=== PATIENT | female | born 1985 | race Caucasian/White ===

== ENCOUNTER 2017-08-08 21:34 | Emergency (ER) | payer BC, MEDICAID ==
[2017-08-08] MEDS ORDERED: ONDANSETRON HCL INJ/PF 4 MG/2 ML SDV IV ONE (22:14)
[2017-08-08] MEDS ORDERED: MORPHINE SULFATE 10 MG/ML INJ IV ONE (22:51)
[2017-08-08] MEDS ORDERED: NORMAL SALINE 1000 ML 1,000 ML IV PRN (22:52)
--- NOTE | 2017-08-08 22:56 | ER Document Report ---
ED Medical Screen (RME) - General Chief Complaint: Nausea/Vomiting/Diarrhea Stated Complaint: ABDOMINAL PAIN,NAUSEA,DIARRHEA TRAVEL OUTSIDE OF THE [place] IN LAST 30 DAYS: No - HPI Notes: 08/08/17 22:53 32-year-old female presents today with sudden onset umbilical pain that started approximately 8 hours ago. Reports bilateral leg cramping that started approximately 30 minutes ago. Reports pain is 10 out of 10, sharp and throbbing. Denies any chest pain, shortness of breath. Denies any chance of , states she is not having any sexual intercourse. Patient reports she still has her appendix and gallbladder. States pain is constant, denies radiation of pain. Reports nausea and vomiting, denies chest pain or shortness of breath. I have greeted and performed a rapid initial assessment of this patient. A comprehensive ED assessment and evaluation of the patient, analysis of test results and completion of medical decision making process will be conducted by an additional ED providers. - Related Data Allergies/Adverse Reactions: No Known Allergies Allergy (Verified 08/08/17 22:12) Review of Systems - Review of Systems Gastrointestinal: See HPI Musculoskeletal: See HPI -: Yes All other systems reviewed and negative Physical Exam - Vital signs Vitals: Temp Pulse Resp BP Pulse Ox 98.1 F 97 20 123/64 96 08/08/17 21:36 08/08/17 21:36 08/08/17 21:36 08/08/17 21:36 08/08/17 21:36 - General General appearance: Anxious In distress: Mild - crying - Abdominal Tenderness: Tender - Right lower quadrant with rebound, umbilical pain. Course - Vital Signs Vital signs: Temp Pulse Resp BP Pulse Ox 98.1 F 97 20 123/64 96 08/08/17 21:36 08/08/17 21:36 08/08/17 21:36 08/08/17 21:36 08/08/17 21:36
[2017-08-08 23:27] LABS: HEMOGLOBIN 14.4 g/dL (12.0-15.5); MEAN CORPUSCULAR HEMOGLOBIN 30.5 pg (27.0-33.4); MEAN CORPUSCULAR HGB CONC 34.3 g/dL (32.0-36.0); MEAN CORPUSCULAR VOLUME 89 fl (80-97); PLATELET COUNT 283 10^3/uL (150-450); RED BLOOD COUNT 4.72 10^6/uL (3.72-5.28); RED CELL DISTRIBUTION WIDTH 13.6 % (11.5-14.0); WHITE BLOOD COUNT 15.7 10^3/uL (4.0-10.5)
[2017-08-08] MEDS ORDERED: DICYCLOMINE HCL INJ 20 MG/2 ML AMPULE IM ONE (23:35)
[2017-08-08 23:45] LABS: ALANINE AMINOTRANSFERASE 38 U/L (9-52); ALBUMIN 4.2 g/dL (3.5-5.0); ALKALINE PHOSPHATASE 75 U/L (38-126); ANION GAP 11 (5-19); ASPARTATE AMINO TRANSFERASE 30 U/L (14-36); BILIRUBIN,DIRECT 0.1 mg/dL (0.0-0.4); BILIRUBIN,TOTAL 0.8 mg/dL (0.2-1.3); BLOOD UREA NITROGEN 22 mg/dL (7-20); CALCIUM 9.3 mg/dL (8.4-10.2); CARBON DIOXIDE 20 mmol/L (22-30); CHLORIDE 106 mmol/L (98-107); GLUCOSE 100 mg/dL (75-110); MAGNESIUM 1.5 mg/dL (1.6-2.3); TOTAL PROTEIN 6.5 g/dL (6.3-8.2)
[2017-08-08 23:54] LABS: ABSOLUTE LYMPHOCYTES# (MANUAL) 0.6 10^3/uL (0.5-4.7); ABSOLUTE MONOCYTES # (MANUAL) 0.2 10^3/uL (0.1-1.4); ABSOLUTE NEUTROPHILS# (MANUAL) 14.9 10^3/uL (1.7-8.2); BAND NEUTROPHILS % (MANUAL) 1 % (3-5); BASOPHILS % (MANUAL) 0 % (0-2); EOSINOPHILS % (MANUAL) 0 % (0-6); LYMPHOCYTES % (MANUAL) 4 % (13-45); MONOCYTES % (MANUAL) 1 % (3-13); SEGMENTED NEUTROPHILS % (MAN) 94 % (42-78); TOTAL CELLS COUNTED 100
[2017-08-08 23:55] LABS: POIKILOCYTOSIS SLIGHT; TOXIC GRANULATION SLIGHT
[2017-08-08 23:56] LABS: OVALOCYTES SLIGHT; PLATELET COMMENT ADEQUATE; TEAR DROP CELLS SLIGHT
[2017-08-09 00:28] LABS: APPEARANCE,URINE CLEAR; BILIRUBIN,URINE NEGATIVE (NEGATIVE); COLOR,URINE YELLOW; GLUCOSE, URINE NEGATIVE (NEGATIVE); KETONES,URINE NEGATIVE (NEGATIVE); LEUKOCYTE ESTERASE,URINE NEGATIVE (NEGATIVE); NITRITE,URINE NEGATIVE (NEGATIVE); PROTEIN,URINE NEGATIVE (NEGATIVE); URINE SPECIFIC GRAVITY 1.028; UROBILINOGEN,URINE NEGATIVE mg/dL (<2.0)
[2017-08-09] MEDS ORDERED: MAGNESIUM SULFATE/D5W 1 GM/100 ML RTUPB IV ONE (00:41)
[2017-08-09] MEDS ORDERED: NORMAL SALINE 1000 ML 1,000 ML IV ONE (01:19)
--- NOTE | 2017-08-09 01:21 | ER Document Report ---
ED General - General Chief Complaint: Nausea/Vomiting/Diarrhea Stated Complaint: ABDOMINAL PAIN,NAUSEA,DIARRHEA Time Seen by Provider: 08/08/17 23:27 Notes: Patient is a 32-year-old female presents with complaint of vomiting diarrhea abdominal cramping. She also developed cramping into her legs and feet. Patient says that her child had vomiting diarrhea on this last week. Patient herself also had the flu. She was diagnosed with flu but she was still placed on amoxicillin. She just finished amoxicillin a few days ago. She says that the cramping is mainly just behind her umbilicus. She denies any focal pain to her right lower quadrant of abdomen. No pain to her right upper quadrant. No blood in her stool. No fevers. No other complaints at this time. No history of abdominal surgeries. TRAVEL OUTSIDE OF THE [place] IN LAST 30 DAYS: No - Related Data Allergies/Adverse Reactions: No Known Allergies Allergy (Verified 08/08/17 22:12) Past Medical History - Social History Smoking Status: Never Smoker Frequency of alcohol use: Occasional Drug Abuse: None Family History: Reviewed & Not Pertinent Patient has suicidal ideation: No Patient has homicidal ideation: No Renal/ Medical History: Denies: Hx Peritoneal Dialysis Psychiatric Medical History: Reports: Hx Attention Deficit Hyperactivity Disorder Review of Systems - Review of Systems Notes: My Normal Review Basic REVIEW OF SYSTEMS: CONSTITUTIONAL : Denies fever, chills, or sweats. Denies recent illness. EENT: Denies eye, ear, throat, or mouth pain or symptoms. Denies nasal or sinus congestion. RESPIRATORY: Denies cough, cold, or chest congestion. Denies shortness of breath, difficulty breathing, or wheezing. GASTROINTESTINAL: Crampy abdominal pain. Some vomiting. Some diarrhea. GENITOURINARY: Denies difficulty urinating, painful urination, burning, frequency, or blood in urine. FEMALE GENITOURINARY: Denies vaginal bleeding, abnormal or irregular periods. MUSCULOSKELETAL: Denies neck or back pain or joint pain or swelling. SKIN: Denies rash or skin lesions. NEUROLOGICAL: Denies altered mental status or loss of consciousness. Denies headache. Denies weakness or paralysis or loss of use of either side. Denies problems with gait or speech. Denies sensory or motor loss. ALL OTHER SYSTEMS REVIEWED AND NEGATIVE. Physical Exam - Vital signs Vitals: Temp Pulse Resp BP Pulse Ox 98.1 F 97 20 123/64 96 08/08/17 21:36 08/08/17 21:36 08/08/17 21:36 08/08/17 21:36 08/08/17 21:36 - Notes Notes: General Appearance: Well nourished, alert, cooperative, no acute distress, mild obvious discomfort. Vitals: reviewed, See vital signs table. Head: no swelling or tenderness to the head Eyes: PERRL, EOMI, Conjuctiva clear Mouth: No decreasd moisture Throat: No tonsillar inflammation, No airway obstruction, No lymphadenopathy Lungs: No wheezing, No rales, No rhonci, No accessory muscle use, good air exchange bilaterally. Heart: Normal rate, Regular rythm, No murmur, no rub Abdomen: Normal BS, soft, No rigidity, No reproducible abdominal tenderness to palpation, No guarding, no rebound, no abdominal masses, Extremities: strength 5/5 in all extremities, good pulses in all extremities, no swelling or tenderness in the extremities, no edema. Skin: warm, dry, appropriate color, no rash Neuro: speech clear, oriented x 3, normal affect, responds appropriately to questions. Course - Re-evaluation Re-evalutation: 08/09/17 01:25 Patient's pain is subsided after receiving the Bentyl. Her nausea is gone. She looks well. She just gave us a stool sample. We will run stool sample to make sure there is no evidence of C. difficile. 08/09/17 02:36 Patient is feeling improved and her C. difficile test is negative. I did reevaluate her belly before disposition. Fortunately she is now having pain to palpation of her right upper quadrant. Is only tender when I push over the area but she is now very tender over right upper quadrant. She did not have pain here earlier. I will obtain ultrasound just to make sure that the gallbladder looks okay. - Vital Signs Vital signs: Temp Pulse Resp BP Pulse Ox 98.1 F 97 20 123/64 96 08/08/17 21:36 08/08/17 21:36 08/08/17 21:36 08/08/17 21:36 08/08/17 21:36 - Laboratory Result Diagrams: 08/08/17 23:02 08/08/17 23:02 Laboratory results interpreted by me: 0108/08/17 08/09/17 23:02 23:02 00:08 WBC 15.7 H Seg Neuts % (Manual) 94 H Band Neutrophils % 1 L Lymphocytes % (Manual) 4 L Monocytes % (Manual) 1 L Abs Neuts (Manual) 14.9 H Carbon Dioxide 20 L BUN 22 H Magnesium 1.5 L Urine Blood SMALL H Discharge - Discharge Clinical Impression: Vomiting and diarrhea Abdominal pain Qualifiers: Abdominal location: generalized Qualified Code(s): R10.84 - Generalized abdominal pain Condition: Good Disposition: HOME, SELF-CARE Additional Instructions: Please take the medicine as prescribed. Please follow up with a doctor in 2 days for reevaluation. Please return to the ER immediately if you have intractable vomiting, fevers, bloody stools, or feel unwell. Prescriptions: Dicyclomine HCl [Bentyl 20 mg Tablet] 20 mg PO QID #20 tablet Ondansetron [Zofran Odt 4 mg Tablet] 1 tab PO Q4H PRN #15 tab.rapdis PRN Reason: For Nausea/Vomiting Referrals: DELILAH BUTLER MD [Primary Care Provider] - Follow up as needed
--- NOTE | 2017-08-09 03:34 | RADIOLOGY REPORT (SQ) ---
EXAM DESCRIPTION: U/S ABDOMEN LTD W/DOPPLER CLINICAL HISTORY: 32 years, Female, RUQ abdominal pain COMPARISON: CT, 08/08/2016 TECHNIQUE: Transabdominal LIMITATIONS: None. FINDINGS: Mildly hydropic gallbladder, no significant stones, negative sonographic Ernandez's test, no intra-/extrahepatic ductal dilation, 3.5 mm common duct diameter, liver, 12 cm right kidney, and visualized aorta/pancreas appear otherwise of normal size, shape, echotexture, and vascularity. No significant free fluid. IMPRESSION: No acute findings. 2011 [employer]- All Rights Reserved
[2017-08-09] MEDS ORDERED: ONDANSETRON 4 MG TAB.RAPDIS PO ONE (04:04)
[2017-08-09] MEDS ORDERED: ONDANSETRON ODT 4 MG TAB (6 TAB/ER DISP) PO PRN (04:04)
[2017-08-09 04:52] VITALS: BP 110/57
== END 2017-08-09 04:47 | disposition home or self-care (01) ==
LOC: ER 21:34
DX: R11.2 Nausea with vomiting, unspecified (principal); R19.7 Diarrhea, unspecified; R10.84 Generalized abdominal pain; R25.2 Cramp and spasm
CPT/HCPCS: 99284; 96372; 96361; 96365; 36415; 87045; 87205; 83735; 85025; 81025; 80053; 81001; 87493; 76705; 93976; J0500; S0119; J3475; J7030 ×2

== ENCOUNTER → 2019-01-23 | Outpatient (CLI) | payer BC ==
[2019-01-23 21:23] LABS: BACTERIA (WET MOUNT) 3+ BACTERIA SEEN; EPITHELIALS (WET MOUNT) 3+ EPITHELIALS SEEN; RBCS (WET MOUNT) NO RBCS SEEN; T.VAGINALIS (WET MOUNT) NO TRICHOMONAS SEEN; WBCS (WET MOUNT) NO WBCS SEEN; YEAST (WET MOUNT) NO YEAST SEEN
[2019-01-23 22:31] LABS: CHLAM PCR NOT DETECTED (NOT DETECT)
== END ==
LOC: LAB 20:39
PROVIDERS: ATTEND Nurse Practitioner Acute Care
DX: N89.8 Other specified noninflammatory disorders of vagina (principal); R30.0 Dysuria
CPT/HCPCS: 87086; 87210; 87491; 87591